=== PATIENT | female | born 1940 | race Caucasian/White ===

== ENCOUNTER → 2017-03-04 | Day surgery (SDC) | payer MEDICARE ==
[~2017-03-04] MED LIST: ACCURETIC 20-121 TAB PO; ALLOPURINOL300 MG; ASPIRIN PO; ATENOLOL PO; CALTRATE 600+D PO; CALTRATE-600/VI1 TA1 PO; CELEXA20 MG PO; CITRACAL + D CA1 TA1 PO; COZAAR100 MG PO; FISH OIL 1,0001 CAP PO; HYDRALAZINE HCL25 MG PO; HYDRALAZINE HCL50 MG PO; HYDROCHLOROTHIA25 MG PO; KEPPRA250 MG PO; KEPPRA750 MG PO; LEVETIRACETAM250 MG PO; LISINOPRIL-HCTZ1 T15 PO; MAG OXIDE; MEGARED OMEGA-1 EAC1 PO; MOBIC PO; NORCO1 TAB 10/3; OMEPRAZOLE40 MG PO; PROBIOTIC OTC; TENORETIC 50 TA1 TAB PO; TENORMIN25 MG PO; VITAMIN D 4001 UDTAB PO; WOMEN'S DAILY F1 TAB; ZANTAC150 M1 PO; [UNRECOGNIZED DRUG - MIXTURE] PO
--- NOTE | ~2017-03-04 | OR ---
Unit #: [id number] #: [id number] Patient: MANDI GRUBER [id number] [address] [address] [id number] O MR#: [id number] NAME: MANDI GRUBER ROOM: Date of Procedure: 03/04/2017 Admission Date: 03/04/2017 Surgeon: Flavio Avendano M.D. : 1940 Attending Physician: Flavio Avendano M.D. Primary Care Physician: Morris Echavarria Aprn OPERATIVE REPORT PRIMARY CARE PHYSICIAN Dr. Morris Echavarria PREOPERATIVE DIAGNOSES Dyspepsia and dysphagia. PROCEDURES PERFORMED Upper gastrointestinal endoscopy. POSTOPERATIVE DIAGNOSES The patient had distal erosive esophagitis. Otherwise, examination was normal up to third part of duodenum. No stricture or mucosal ring was seen. RECOMMENDATIONS The patient being started on pantoprazole 40 mg p.o. daily. She will be followed up in the office in 8 to 10 weeks' time. If she is still symptomatic, a modified swallow evaluation will be done. SEDATION USED MAC. DESCRIPTION OF PROCEDURE Following detailed explanation of the potential risks and complications of an upper endoscopy, namely perforation, bleeding, and complications related to sedation, the patient was brought to GI lab and laid in the left lateral decubitus position. Lubricated tip of the Olympus video upper endoscope was passed through the bite block into the proximal esophagus under direct vision. The entire esophageal mucosa was examined. The patient was noted to have distal erosive esophagitis involving the Z-line at the GE junction. No stricture or mucosal ring was present. The esophageal peristalsis were hyperactive. The scope was then advanced into the gastric cavity and the latter was insufflated. Mucosa of the fundus, body, and antrum was examined and appeared unremarkable. Pylorus was intubated with visualization of the normal duodenal bulb and second and third part of the duodenum. Upon withdrawal and retroflexion, incisura, cardia, and greater curve examined and no additional findings noted. The scope was then withdrawn in the distal esophagus. The entire esophageal mucosa was examined all the way up to pharynx. No additional findings noted. The patient tolerated the procedure without any postprocedure complications. Unit #: [id number] #: [id number] Patient: MANDI GRUBER Dictated by... Joshua Oneil TD: 03/04/2017 20:57 JOB #: [id number] OPERATIVE REPORT Page 1 of 1 X Flavio Avendano MD PROCEDURE OPERATIVE NOTE
== END | disposition home or self-care (01) ==
LOC: COPS 11:52
DX: K20.8 Other esophagitis (principal); K21.9 Gastro-esophageal reflux disease without esophagitis; I10 Essential (primary) hypertension; Z87.442 Personal history of urinary calculi; Z88.8 Allergy status to other drugs, medicaments and biological substances; Z79.1 Long term (current) use of non-steroidal anti-inflammatories (NSAID); Z79.891 Long term (current) use of opiate analgesic; Z79.899 Other long term (current) drug therapy